=== PATIENT | female | born 1990 | race Caucasian/White ===

== ENCOUNTER 2017-01-09 01:00 | Emergency (ER) | payer SELFPAY ==
[~2017-01-09] VITALS: Ht 162.6 cm; Wt 89.3 kg
[2017-01-09 01:06] VITALS: TEMP 97.8
[2017-01-09 01:53] LABS: COLLECTION METHOD CLEAN CATCH
[2017-01-09 01:57] LABS: BASO % 0.3 % (0.0-2.0); EOS # 0.1 (0.0-0.7); EOS % 1.3 % (0-4.0); GRAN % 73.5 % (42.2-75.2); HEMATOCRIT 37.7 % (37.0-47.0); LYMPH # 1.8 (1.2-3.4); LYMPH % 18.9 % (20.0-51.0); MEAN CELL VOLUME 87 fl (80.0-100.0); MEAN CORPUSCULAR HEMOGLOBIN 27 pg (27.0-31.0); MEAN CORPUSCULAR HGB CONC 31 g/dl (33.0-37.0); MEAN PLATELET VOLUME 11.7 fl (7.4-10.4); MONO # 0.5 (0.1-0.6); MONO % 5.7 % (1.7-9.3); PLATELET COUNT 297 K/mm3 (130-400); RED BLOOD COUNT 4.32 M/mm3 (4.10-5.30); WHITE BLOOD COUNT 9.5 K/mm3 (4.8-10.8)
[2017-01-09 02:00] LABS: MUCOUS Present /lpf; PH 6 (5-8); SQUAMOUS EPITHELIAL None Seen /hpf; URINE APPEARANCE Clear; URINE BACTERIA None Seen /hpf; URINE BILIRUBIN Negative (NEGATIVE); URINE BLOOD 2+ (NEGATIVE); URINE COLOR Yellow; URINE GLUCOSE Negative (NEGATIVE); URINE KETONE Negative (NEGATIVE); URINE LEUKOCYTE ESTERASE Negative (NEGATIVE); URINE PROTEIN(semi-quant) Negative (NEGATIVE); URINE RBC >50 /hpf; URINE WBC 0-2 /hpf
[2017-01-09 02:01] LABS: HEMOGLOBIN 11.8 g/dl (12.5-16.0)
[2017-01-09 02:06] LABS: ADJUSTED CALCIUM 8.7 mg/dL (8.4-10.2); BILIRUBIN,TOTAL 0.6 mg/dL (0.0-1.0); CALCIUM 9.5 mg/dL (8.4-10.2); CREATININE, serum 0.79 mg/dL (0.52-1.25); POTASSIUM 4.1 mmol/L (3.4-5.0)
[2017-01-09] MEDS ORDERED: PHENERGAN 25 TA25 MG PO (03:47)
[2017-01-09 03:53] LABS: CHLAMYDIA/TRACH by PCR Female NOT DETECTED; NEISSERIA GON by PCR Female NOT DETECTED
[2017-01-09 04:10] VITALS: BP 116/68; PULSE 68
== END 2017-01-09 04:14 | disposition home or self-care (01) ==
LOC: COL.ER 01:00
PROVIDERS: Emergency Medicine
DX: N93.9 Abnormal uterine and vaginal bleeding, unspecified (principal); R11.2 Nausea with vomiting, unspecified; R10.31 Right lower quadrant pain
CPT/HCPCS: J1885; J2550; J7030; Q9967

== ENCOUNTER 2017-03-29 16:48 | Emergency (ER) | payer MEDICAID ==
[~2017-03-29] VITALS: Ht 160 cm; Wt 81.8 kg
[~2017-03-29 16:48] MED LIST: PHENERGAN 25 TA25 MG PO
[2017-03-29 17:00] VITALS: BP 137/85; TEMP 98.2
[2017-03-29] MEDS ORDERED: MYCOGEN CR 30GM TP (20:13)
[2017-03-29 20:24] VITALS: PULSE 80
[2017-03-29 22:41] LABS: COLLECTION METHOD CLEAN CATCH
[2017-03-29 22:51] LABS: AMORPHOUS CRYSTAL Present /uL; MUCOUS Present /lpf; PH 7 (5-8); URINE APPEARANCE Turbid; URINE BACTERIA None Seen /hpf; URINE BILIRUBIN Negative (NEGATIVE); URINE BLOOD Negative (NEGATIVE); URINE COLOR Yellow; URINE GLUCOSE Negative (NEGATIVE); URINE KETONE Negative (NEGATIVE); URINE LEUKOCYTE ESTERASE 3+ (NEGATIVE); URINE NITRATE Negative (NEGATIVE); URINE PROTEIN(semi-quant) Negative (NEGATIVE); URINE UROBILINOGEN Negative (NEGATIVE)
[2017-03-30] MEDS ORDERED: MACROBID 1100 MG/CAP PO (01:18)
== END 2017-03-29 20:25 | disposition home or self-care (01) ==
LOC: COL.ER 16:48
PROVIDERS: Emergency Medicine
DX: N76.0 Acute vaginitis (principal)